=== PATIENT | male | born 1970 | race Hispanic/Latino ===

== ENCOUNTER 2019-06-08 06:50 | Day surgery (SDC) | payer OTHER ==
[2019-06-06 16:23] LABS: BASOPHILS % (AUTO) 0.4 % (0.0-5.0); EOSINOPHILS % (AUTO) 0.7 % (0.0-8.0); HEMATOCRIT 41.1 % (42-54); MEAN CORPUSCULAR HGB CONC 32.4 g/dL (32.0-36.0); MEAN CORPUSCULAR VOLUME 89.7 fL (79-99); NEUTROPHILS % (AUTO) 56.5 % (40.0-77.0); PLATELET COUNT (AUTO) 209 K/uL (130-400); RED BLOOD CELL COUNT(AUTO) 4.58 MIL/uL (4.50-6.20); RED CELL DISTRIBUTION WIDTH 12.8 % (11.0-15.5); WHITE BLOOD COUNT (AUTO) 7.4 K/uL (4.8-10.8)
[2019-06-06 16:30] VITALS: BP 132/65
[2019-06-06 16:43] LABS: CREATININE 0.9 mg/dL (0.5-1.5); POTASSIUM 3.9 mmol/L (3.5-5.1)
--- NOTE | 2019-06-06 17:22 | NUR ---
REPORTED ELEVATED CRITICAL HIGH BLOOD GLUCOSE TO DR. PRYOR, PER DR. PRYOR RECHECK BLOOD GLUCOSE DOS.
[~2019-06-08] VITALS: Ht 168.9 cm; Wt 106.7 kg
[2019-06-08] VITALS (17 sets, daily range): BP systolic 97–132; BP diastolic 50–72
[2019-06-08] MEDS: CEFAZOLIN SODIUM 1 GM VIAL IVP SCH ×2 (06:00→08:38)
[~2019-06-08 06:50] MED LIST: ATOR20TA65 PO; EMPA25TA PO; FISH1CAP50 PO; INSU100I21 SQ; LISI-613 PO; METF-446 PO; PREG75 PO
[2019-06-08] MEDS ORDERED: SODIUM CHLORIDE 0.9% 1000ML 1,000 ML IV ONE (07:08)
[2019-06-08] MEDS ORDERED: DEXAMETHASONE SOD PHOSPHATE 10MG/ML 1ML VIAL ONE (07:50)
[2019-06-08] MEDS ORDERED: MIDAZOLAM HCL 1 MG/ML 2ML VIAL ONE (07:50)
[2019-06-08] MEDS ORDERED: LIDOCAINE PF 2% 5ML ABBOJECT ONE (07:50)
[2019-06-08] MEDS ORDERED: FENTANYL CITRATE PF 50 MCG/1 ML 2ML VIAL ONE ×2 (07:51→09:00)
[2019-06-08] MEDS ORDERED: ONDANSETRON HCL 4 MG/2 ML VIAL ONE (07:51)
[2019-06-08] MEDS ORDERED: PROPOFOL 10 MG/ML 20ML VIAL IV ONE (07:51)
--- NOTE | 2019-06-08 07:55 | NUR ---
POTENTIAL FOR INFECTION: SHAVED RIGHT KNEE / RIGHT LEG PER GENE AMADO, FOLLOWED BY WIPING WITH CHELO: 2% CHLORHEXIDINE GLUCONATE CLOTH PATIENTS PRE- OP SKIN PREP.
[2019-06-08] MEDS ORDERED: EPHEDRINE SULFATE 50 MG/ML AMPULE ONE (08:37)
[2019-06-08] MEDS ORDERED: PHENYLEPHRINE HCL 10 MG/ML 1ML VIAL IV ONE (08:52)
[2019-06-08] MEDS ORDERED: KETOROLAC TROMETHAMINE 30MG/ML ONE (09:21)
[2019-06-08] MEDS ORDERED: IBUP-2070 PO (09:30)
[2019-06-08] MEDS ORDERED: CEPH500B PO (09:30)
[2019-06-08] MEDS ORDERED: ACET1TAB12 PO (09:30)
[2019-06-08] MEDS ORDERED: MEPERIDINE-PF 25 MG/ML SYG ONE ×2 (09:47→09:58)
--- NOTE | 2019-06-08 10:35 | NUR ---
POST RECEIVED PT FROM PACU, S/P RIGHT KNEE ARTHROSCOPY, DRESSING TO SITE DRY AND INTACT, NEUROVASCULAR CHECKS WNL TO RIGHT LEG. PT AWAKE AND ALERT IN BED, NO DISTRESS NOTED , PT DENIED ANY PAIN OR DISCOMFORTS. VS STABLE ON ARRIVAL. PLAN OF CARE DISCUSS WITH PATIENT/SPOUSE. CALL LIGHT WITHIN REACH.
--- NOTE | 2019-06-08 11:06 | NUR ---
dc pt dc home via wc,no distress noted. pt denied any pain or discomforts. pt accompanied by spouse. pt has crutches already from home . right knee dressing dry and intact, dc instructions reinforced at this time. rx x 3 given to pts spouse
== END 2019-06-08 11:06 | disposition home or self-care (01) ==
LOC: DAH 06:50
PROVIDERS: ATTEND Orthopaedic Surgery
DX: M94.261 Chondromalacia, right knee (principal); I10 Essential (primary) hypertension; M17.11 Unilateral primary osteoarthritis, right knee; E11.9 Type 2 diabetes mellitus without complications; E66.9 Obesity, unspecified; G89.29 Other chronic pain; Z79.899 Other long term (current) drug therapy
CPT/HCPCS: 29870; 36415; 80048; 82948 ×2; 85025; A4213; A4215; A4221; A4222; A4223; A4606; A4649 ×2; A4663; A4930 ×2; A5120; A6223; J0690; J1100; J1885; J2001; J2175 ×2; J2250; J2370; J2405; J2704; J3010 ×2; J3490; J7030 ×3